=== PATIENT | female | born 1995 | race Two or more races ===

== ENCOUNTER 2017-07-17 12:47 | Emergency (ER) | payer BC ==
[~2017-07-17] VITALS: Ht 162.6 cm; Wt 61.2 kg
[2017-07-17 13:05] VITALS: BP 138/78
[2017-07-17] MEDS ORDERED: KETOROLAC TROMETH 60MG/2ML VIAL IM ONE (13:30)
== END 2017-07-17 14:05 | disposition home or self-care (01) ==
LOC: ER 12:47
DX: S39.012A Strain of muscle, fascia and tendon of lower back, initial encounter (principal); X58.XXXA Exposure to other specified factors, initial encounter; Y93.89 Activity, other specified; Y99.8 Other external cause status; Y92.89 Other specified places as the place of occurrence of the external cause
CPT/HCPCS: 74176; 81002; 96372; 99284; J1885

== ENCOUNTER 2023-06-27 10:02 | Emergency (ER) | payer BC, MEDICAID ==
[~2023-06-27] VITALS: Ht 160 cm; Wt 72.6 kg
[2023-06-27 10:04] VITALS: TEMP 97.5
[2023-06-27 10:13] VITALS: O2SAT 100
[2023-06-27 10:31] LABS: Basophils # (auto) 0 10 ^3/uL (0-0.2); Basophils % (auto) 0.3 % (0.0-2.0); Eosinophils # (auto) 0 10 ^3/uL (0-0.8); Hematocrit 38.6 % (36.0-46.0); Hemoglobin 12.6 g/dL (12.2-16.2); Lymphocytes % (auto) 25.8 % (10.0-50.0); Mean Corpuscular Hemoglobin 29.1 pg (28.0-32.0); Mean Corpuscular Hgb Conc. 32.7 g/dL (32.0-36.0); Mean Corpuscular Volume 89.2 fL (80.0-100.0); Monocytes # (auto) 0.2 10 ^3/uL (0-1.3); Monocytes % (auto) 2.1 % (0.0-12.0); Neutrophils # (auto) 8.4 10 ^3/uL (1.6-8.6); Neutrophils % (auto) 71.8 % (37.0-80.0); Nucleated Red Blood Cells % 0.1 %; Red Blood Cells 4.33 10^6/uL (4.0-5.20); Red Cell Distribution Width 13.6 % (11.8-14.3); White Blood Cell 11.7 10^3/uL (4.4-10.8)
[2023-06-27 10:56] LABS: Alanine Aminotransferase 29 U/L (7-40); Alkaline Phosphatase 85 U/L (46-116); Anion Gap 11 (5-15); Aspartate Aminotransferase 28 U/L (13-40); BUN/Creatinine Ratio 12.7 (10.0-20.0); Bilirubin, Total 0.2 mg/dL (0.2-1.0); Blood Urea Nitrogen 10 mg/dL (9-23); Calcium 9.2 mg/dL (8.5-10.1); Carbon Dioxide 25 mmol/L (20-30); Chloride 107 mmol/L (98-107); Glucose 139 mg/dL (74-106); Sodium 143 mmol/L (136-145)
[2023-06-27 11:20] VITALS: BP 144/82; PULSE 85; RESP 19
[2023-06-27] MEDS: MORPHINE SULFATE INJ 2 MG/ml SYRG IV ONE (11:20)
[2023-06-27] MEDS: PROCHLORPERAZINE EDISYLATE 5 MG/ML 2ML VIAL IV ONE (11:20)
[2023-06-27] MEDS: SODIUM CHLORIDE 0.9% 1,000 ML IVB ONE (11:21)
== END 2023-06-27 12:14 | disposition home or self-care (01) ==
LOC: ER 10:02
DX: F12.10 Cannabis abuse, uncomplicated (principal); R10.2 Pelvic and perineal pain; R10.84 Generalized abdominal pain; R11.2 Nausea with vomiting, unspecified; R19.7 Diarrhea, unspecified
CPT/HCPCS: 36415; 80053; 84702; 85025; 96361; 96374; 96375; 99284; J0780; J2270; J7030